=== PATIENT | female | born 1965 | race Caucasian/White ===

== ENCOUNTER 2021-10-05 18:19 | Emergency (ER) | payer MEDICAID, SELFPAY ==
--- NOTE | ~2021-10-05 | XR_ITS ---
EXAMINATION: XR humerus RT EXAM DATE: 10/05/2021 20:09 INDICATION: Fall, right shoulder pain, humeral pain. TECHNIQUE: Orthogonal projections right humerus. There is no prior study for comparison. FINDINGS: There is acute closed posttraumatic right humeral neck fracture, probably mild impaction. Mild angulation. No shoulder dislocation suspected or significant displacement. Bones are osteopenic. Please note that osteopenia limits sensitivity for detecting fractures by radiographs. IMPRESSION: Acute right humeral neck fracture. Reviewed, dictated and finalized at location [facility]
[2021-10-05 18:22] VITALS: BP 146/77; PULSE 121; RESP 20; TEMP 35.8; O2SAT 100
[2021-10-05 19:37] VITALS: BP 124/83; PULSE 131; RESP 18; TEMP 36.4; O2SAT 98
--- NOTE | 2021-10-05 19:46 | ED.UPPEXIN ---
HPI - Extremity Injury (Upper) General Chief Complaint: Extremity Injury, Upper Stated Complaint: fall with arm injury Time Seen by Provider: 10/05/21 19:37 Source: patient Mode of arrival: ambulatory Limitations: no limitations History of Present Illness HPI narrative: This is a 56 year old female that presents to the ER for right upper arm pain present since a fall today. Reports she tripped over a rubber mat at home. Reports falling onto her right arm. Reports since she has had pain to the mid upper arm. Worse with movement and relieved with rest. Reports decreased ROM in the arm due to pain. Denies hitting her head, loss of consciousness, other injuries, or numbness. Related Data Home Medications Medication Instructions Recorded Confirmed No Home Medications 10/05/21 10/05/21 Allergies Allergy/AdvReac Type Severity Reaction Status Date / Time ciprofloxacin Allergy Severe Other Verified 10/05/21 19:45 levofloxacin Allergy Severe Other Verified 10/05/21 19:45 Review of Systems Review of Systems: CONSTITUTIONAL: Denies fever EYES: Denies visual changes GASTROINTESTINAL: Denies vomiting MUSCULOSKELETAL: Reports joint pain, and myalgia. NEUROLOGIC: Denies numbness All systems reviewed & are unremarkable except as noted in HPI and below PMFSH Past Medical History Medical History (Updated 10/05/21 @ 21:03 by Kiki Ayoub PA-C) No active medical problems Social History Social History (Updated 10/05/21 @ 19:49 by Kiki Ayoub PA-C) Substance use: never Exam Narrative: GENERAL: Well-appearing, well-nourished, and in no acute distress. HEAD: Normocephalic, atraumatic. EYES: EOMI. CHEST: Clear to auscultation. No respiratory distress. No wheezes rales or rhonchi HEART: Regular rate and rhythm. No murmur heard. Normal peripheral pulses. EXTREMITIES: Normal range of motion. No edema or obvious deformity. Normal radial pulses. Normal sensation SKIN: Warm, dry, no rash. NEURO: No focal deficits. Alert and oriented x3. PSYCH: Normal mood and affect Course Vital Signs Vital signs: Vital Signs Temperature 96.4 F L 10/05/21 18:22 Pulse Rate 121 H 10/05/21 18:22 Respiratory Rate 20 10/05/21 18:22 Blood Pressure 146/77 H 10/05/21 18:22 Pulse Oximetry 100 10/05/21 18:22 Temperature 97.6 F 10/05/21 19:37 Pulse Rate 131 H 10/05/21 19:37 Respiratory Rate 18 10/05/21 19:37 Blood Pressure 124/83 10/05/21 19:37 Pulse Oximetry 98 10/05/21 19:37 MDM - Extremity Injury (Upper) MDM Narrative Medical decision making narrative: Patient presents to the emergency department for right arm pain after an injury just prior to arrival. Patient is neurovascularly intact. Right humerus x-ray shows an acute right humeral neck fracture. Patient placed in a sling and will be given orthopedics for follow-up. She is stable and felt appropriate for further outpatient evaluation. She was given warnings to return to the ER Patient reports she would not like any prescribed pain medication at this time Imaging Data Radiologist's impression: ITS Impressions Humerus X-Ray 10/05/21 20:10 IMPRESSION: Acute right humeral neck fracture. Critical Care Time Critical Care Time Critical Care Time: No Discharge Plan Discharge Clinical Impression: Closed fracture of neck of right humerus Qualifiers: Encounter type: initial encounter Qualified Code(s): S42.211A - Unspecified displaced fracture of surgical neck of right humerus, initial encounter for closed fracture Patient Disposition: Home, Self-Care Condition: Stable Instructions: Arm Fracture in Adults (ED) Additional Instructions: Return to the emergency department if you experience fever, redness and swelling of your arm, numbness, or any other symptoms that are concerning to you Rest. Ice to the area. Tylenol or ibuprofen as needed for pain Follow-up with orthopedics. Call to make an appointment Prescriptio
--- NOTE | 2021-10-05 19:56 | PC.NURSE ---
Pt off floor to radiology.
--- NOTE | 2021-10-05 19:56 | PC.NURSE ---
Pt refused tramadol. Encouraged to alert RN if she changes her mind.
[2021-10-05 21:15] VITALS: BP 119/74; PULSE 110; RESP 18; O2SAT 99
== END 2021-10-05 21:15 | disposition home or self-care (01) ==
LOC: ANHED 21:08
PROVIDERS: Emergency Provider Emergency Medicine
DX: S42.211A Unspecified displaced fracture of surgical neck of right humerus, initial encounter for closed fracture (principal)
CPT/HCPCS: 73060; 99284; A4565